=== PATIENT | male | born 1965 | race Caucasian/White ===

== ENCOUNTER 2023-07-03 09:27 | Outpatient (REF) | payer OTHER, SELFPAY ==
--- NOTE | ~2023-07-03 | XR_ITS ---
STUDY: Chest and SI series INDICATION: Iritis, rule out ankylosing spondylitis, sarcoidosis. COMPARISON: None TECHNIQUE: PA and lateral chest, 5 view SI series FINDINGS: Chest: Heart, mediastinum, pulmonary vessels and lung teran within normal limits. Bony structures are intact. SI series: SI joints are symmetric and unremarkable in appearance. Hip joints are maintained. No acute bony pathology recognized. Unremarkable chest and SI series
[2023-07-03 11:33] LABS: Hematocrit 48.3 % (42.0-52.0); Hemoglobin 15.2 g/dl (14.0-18.0); Mean Corpuscular HGB Conc 31.5 g/dl (31.0-36.0); Mean Corpuscular Hemoglobin 25.8 pg (27.0-33.0); Mean Corpuscular Volume 81.9 fL (80.0-98.0); Mean Platelet Volume 10.2 fL (9.4-12.4); Platelet Count 254 X10*3/uL (160-400); Red Cell Distribution Width 13.2 % (11.0-16.0)
[2023-07-03 11:54] LABS: Rheumatoid Factor < 13.0 IU/mL (<15.0)
[2023-07-03 12:31] LABS: Erythrocyte Sedimentation Rate 1 MM/HR (0-15)
[2023-07-06 12:18] LABS: RPR Rapid Plasma Reagin NON-REACTIVE (NON-REACTIVE)
[2023-07-06 17:28] LABS: Lyme Abs Screen <0.90 index
[2023-07-07 06:43] LABS: HLA B27 Negative (Negative)
[2023-07-08 14:14] LABS: Angiotensin Converting Enzyme <5 U/L (9-67)
== END 2023-07-03 09:28 | disposition home or self-care (01) ==
LOC: HO.HHCL 09:27
PROVIDERS: Visit Provider Optometrist
DX: H20.00 Unspecified acute and subacute iridocyclitis (principal)
CPT/HCPCS: 36415; 71046; 72202; 82164; 85027; 85652; 86431; 86592; 86617; 86618; 86812

== ENCOUNTER 2023-11-04 09:17 | Outpatient (REF) | payer OTHER, SELFPAY ==
[2023-11-04 11:58] LABS: Prostate Specific Antigen 0.77 ng/mL (<0.05-4.0)
== END 2023-11-04 09:18 | disposition home or self-care (01) ==
LOC: HO.HHCL 09:17
PROVIDERS: Visit Provider Nurse Practitioner Family
DX: N40.1 Benign prostatic hyperplasia with lower urinary tract symptoms (principal)
CPT/HCPCS: 36415; 84153

== ENCOUNTER 2024-12-26 08:53 | Outpatient (REF) | payer OTHER, SELFPAY ==
--- NOTE | ~2024-12-26 | XR_ITS ---
EXAMINATION: XR SHOULDER, LEFT CLINICAL INFORMATION: M25.519 - Pain in unspecified shoulder COMPARISON: None available. TECHNIQUE: AP external rotation, Grashey, scapular Y, and axillary views of the left shoulder. FINDINGS: Normal bone mineralization. No fracture, dislocation, or suspicious bone lesion. Normal alignment. The glenohumeral joint is normal. The AC joint is normal. There is a mildly downsloping acromion. No undersurface spurring. The subacromial space is preserved. Remainder of the soft tissue and bony structures appear normal. XR/XR shoulder LT min 2V IMPRESSION: Normal left shoulder. Electronically signed by: Neri Mauricio MD 12/26/2024 01:36 PM EDT
--- OUTSIDE RECORDS SUMMARY | 2024-12-26 09:21 | XMS_ITS | Clinical Summary ---
Author Organization [facility], Address [address] [place] [address] Phone Care Team Providers Care Autopsy Assistant Name Role Phone Hair Mills MD Primary Care Provider [phone] Allergies No known active allergies Medications acetaminophen (TYLENOL) 500 MG tablet Take 500 mg by mouth every 6 (six) hours if needed for mild pain Active albuterol HFA (PROVENTIL HFA;VENTOLIN HFA) 108 (90 Base) MCG/ACT inhaler Inhale 2 puffs 3 (three) times a day Active amLODIPine (NORVASC) 5 MG tablet Take 5 mg by mouth 1 (one) time each day Active cetirizine (ZyrTEC) 10 MG tablet Take 10 mg by mouth 1 (one) time each day Active docusate sodium (COLACE) 100 MG capsule Take 100 mg by mouth in the morning and 100 mg in the evening. Active fluticasone (FLONASE) 50 MCG/ACT nasal spray Administer 1 spray into each nostril 1 (one) time each day Active gabapentin (NEURONTIN) 600 MG tablet Take 600 mg by mouth in the morning and 600 mg in the evening. Active hydroCHLOROthia zide 25 MG tablet Take 25 mg by mouth 1 (one) time each day Active lisinopril 40 MG tablet Take 40 mg by mouth 1 (one) time each day Active oxyCODONE-aceta minophen (PERCOCET) 5-325 MG per tablet Take 1 tablet by mouth every 6 (six) hours if needed for moderate pain Active pravastatin (PRAVACHOL) 80 MG tablet Take 80 mg by mouth 1 (one) time each day Active tamsulosin (FLOMAX) 0.4 MG 24 hr capsule Take 0.4 mg by mouth 1 (one) time each day Active ibuprofen (ADVIL,MOTRIN) 600 MG tablet TAKE 1 TABLET BY MOUTH 3 TIMES A DAY NEEDED FOR PAIN 2 Active omeprazole (PriLOSEC) [address] capsule Take 10 mg by mouth 1 (one) time each day Do not crush or chew. Active Active Problems Problem Noted Date Diagnosed Date Degeneration of intervertebral disc 2022 Social History Tobacco Use Types Packs/Day Years Used Date Smoking Tobacco: Never Tobacco Cessation:Counseling Given: Not Answered Alcohol Use Standard Drinks/Week Comments Yes 0 (1 standard drink = 0.6 oz pur e alcohol) Sex and Gender Information Value Date Recorded Sex Assigned at Not on file Legal Sex Male 11:37 AM EDT Gender Identity Not on file Sexual Orientation Not on file Last Filed Vital Signs Vital Sign Reading Time Taken Comments Blood Pressure 136/80 04/02/2022 10:08 AM EDT Pulse 80 04/02/2022 10:08 AM EDT Temperature 36.2 ??C (97.1 ??F) 04/02/2022 10:08 AM E DT Respiratory Rate - - Oxygen Saturation - - Inhaled Oxygen Concentration - - Weight 83.9 kg (185 lb) 04/02/2022 10:08 AM EDT Height 172.7 cm (5' 8 ) 04/02/2022 10:08 AM EDT Body Mass Index 28.13 04/02/2022 10:08 AM EDT Plan of Treatment Health Maintenance Due Date Last Done Comments Colorectal Cancer Screening: Annual FOBT 2012 Colorectal Cancer Screening: Colonoscopy 2012 Colorectal Cancer Screening: Sigmoidoscopy 2012 Pneumococcal Vaccine: 50+ Ye ars (1 of 1 - PCV) 2013 Influenza Vaccine (Season Ended) 2025 Hepatitis B Vaccine Aged Out No longe r eligible based on patient's age to complete this topic Insurance [employer] Care Teams Autopsy Assistant Relationship Specialty Start Date End Date Hair Mills MD PCP - General Internal Medicine 03/10/22
--- OUTSIDE RECORDS SUMMARY | 2024-12-26 09:21 | XMS_ITS | Clinical Summary ---
Author Organization [facility] Address [address] [place] [address] Care Team Providers Care On Site Services Specialist Name Role Phone Hair Mills MD Primary Care Provider [phone] Allergies No known active allergies Medications Medication Sig Dispensed Refills Start Date End Date Status celecoxib (CELEBREX) 100 MG capsule Take 100 mg by mouth. 0 05/04/2019 Active Diclofenac Sodium (VOLTAREN) 1 % GEL topical Apply 4gm to knee up to 4 x daily 0 04/08/2019 Active docusate sodium (COLACE) 100 MG capsule Take 100 mg by mouth 2 (two) times a day. 0 05/04/2019 Active DULoxetine (CYMBALTA) DR capsule 20 mg TAKE 1 CAP BY MOUTH 2 TIMES DAILY FOR 30 DAYS. 1 06/07/2019 Active gabapentin (NEURONTIN) 600 MG tablet Take 600 mg by mouth 2 (two) times a day. 5 07/27/2019 Active hydroCHLOROthiazide (HYDRODIURIL) tablet 25 mg Take 25 mg by mouth daily. 1 07/27/2019 Active lisinopril (PRINIVIL,ZESTRIL) tablet 20 mg Take 20 mg by mouth daily. 5 07/27/2019 Active nabumetone (RELAFEN) 750 MG tablet TAKE 1 TAB BY MOUTH 2 TIMES DAILY 0 05/05/2019 Active oxyCODONE-acetaminophe n (PERCOCET) 5-325 MG per tablet Take 1 tablet by mouth every 6 (six) hours as needed. for pain 0 08/03/2019 Active pravastatin (PRAVACHOL) tablet 20 mg Take 20 mg by mouth daily. 5 07/27/2019 Active pravastatin (PRAVACHOL) tablet 20 mg TAKE 1 TABLET BY MOUTH EVERY DAY 0 05/30/2019 Active sulindac (CLINORIL) 150 MG tablet TAKE 1 TABLET BY MOUTH TWICE A DAY FOR 2 WEEKS 0 06/16/2019 Active tamsulosin (FLOMAX) 0.4 MG CAPS TAKE 1 CAPSULE BY MOUTH DAILY. TAKE 30 MINS AFTER SAME MEAL EVERY DAY. 4 07/27/2019 Active Active Problems No known active problems Family History Medical History Relation Name Comments Cancer Brother Cancer Mother Relation Name Status Comments Brother Mother Social History Tobacco Use Types Packs/Day Years Used Date Smoking Tobacco: Never Smokeless Tobacco: Never Alcohol Use Standard Drinks/Week Comments Yes 3 (1 standard drink = 0.6 oz pur e alcohol) Sex and Gender Information Value Date Recorded Sex Assigned at Not on file Gender Identity Not on file Sexual Orientation Not on file Job Start Date Occupation Industry Not on file Not on file Not on file Last Filed Vital Signs Vital Sign Reading Time Taken Comments Blood Pressure - - Pulse - - Temperature - - Respiratory Rate - - Oxygen Saturation - - Inhaled Oxygen Concentration - - Weight 85.7 kg (189 lb) 08/08/2019 2:50 PM EST Height 160 cm (5' 3 ) 08/08/2019 2:50 PM EST Body Mass Index 33.48 08/08/2019 2:50 PM EST Plan of Treatment Health Maintenance Due Date Last Done Comments Hepatitis C Screening 1963 COVID-19 Vaccine (#1) 1963 Depression Screening 1975 BMI Counseling 1981 Preventative Health Evaluation 1981 Colon Cancer Screening (Colonoscopy) 2008 Shingrix-Zoster Vaccine (1 of 2) 2013 Influenza Vaccine (#1) 2024 09/29/2018 DTap / Tdap / Td (2 - Td or Tdap) 09/01/2028 019 RSV Adult > 60+ Yrs or Pregn ant (1 - 1-dose 75+ series) 2038 Pneumococcal Vaccine Aged Out 09/11/2020 No long er eligible based on patient's age to complete this topic Hepatitis B Vaccines Aged Out No long er eligible based on patient's age to complete this topic RSV Ped < 20 months Aged Out No longe r eligible based on patient's age to complete this topic Care Teams On Site Services Specialist Relationship Specialty Start Date End Date Hair Mills MD PCP - General Internal Medicine 07/23/18
--- OUTSIDE RECORDS SUMMARY | 2024-12-26 09:21 | XMS_ITS | Clinical Summary ---
Author Organization [employer] Address [address] [facility] [address] [place] [address] Care Team Providers Care First Officer And Flight Instructor Name Role Phone Unavailable Primary Care Provider Unavailabl e Allergies No known active allergies Medications prednisoLONE acetate (Pred-Forte) 1 % ophthalmic suspension Administer 1 drop into the right eye 4 times daily. Shake before using. 10 mL 3 Active atorvastatin (Lipitor) 20 MG tablet TAKE 1 TABLET BY MOUTH EVERY DAY FOR 90 DAYS 3 Active carvedilol (Coreg) 3.125 MG tablet Take 3.125 mg by mouth with breakfast and with evening meal. 3 Active cetirizine (ZyrTEC) 10 MG tablet Take 10 mg by mouth in the morning. 3 Active FLUoxetine (PROzac) 20 MG capsule Take 20 mg by mouth in the morning. 3 Active gabapentin (Neurontin) 300 MG capsule TAKE 3 CAPSULES BY MOUTH 2 TIMES DAILY. 3 Active hydroCHLOROthia zide (HYDRODiuril) 25 MG tablet Take 25 mg by mouth in the morning. 3 Active lisinopril 40 MG tablet Take 40 mg by mouth in the morning. 3 Active oxybutynin XL (Ditropan-XL) 10 MG 24 hr tablet Take 10 mg by mouth in the morning. 3 Active oxyCODONE-aceta minophen (Percocet) 5-325 MG tablet 3 Active tamsulosin (Flomax) 0.4 MG 24 hr capsule TAKE 1 CAPSULE BY MOUTH DAILY. TAKE 30 MINS AFTER SAME MEAL EVERY DAY. 3 Active traZODone (Desyrel) 50 MG tablet TAKE 1-2 TABLETS BY MOUTH AT AT BEDTIME NEEDED SLEEP 3 Active Bisacodyl EC 5 MG EC tablet TAKE 2 TABLETS BY MOUTH RIGHT BEFORE YOUR FIRST DOSE OF LIQUID PREP. 4 Active amLODIPine (Norvasc) 5 MG tablet 4 Active pantoprazole (ProtoNix) 40 MG EC tablet TAKE 1 TAB BY MOUTH EVERY MORNING ON EMPTY STOMACH, WAIT 30MINS THEN EAT TO ACTIVATE THE MEDICATIONS 4 Active Banophen 25 MG capsule Take 25 mg by mouth every 6 (six) hours if needed for itching. 4 Active Latosha-Lanta 200-200-20 MG/5ML oral suspension 4 Active Active Problems No known active problems Social History Tobacco Use Types Packs/Day Years Used Date Smoking Tobacco: Never Smokeless Tobacco: Never Tobacco Cessation:Counseling Given: Not Answered Sex and Gender Information Value Date Recorded Sex Assigned at Male 06/23/2022 10:30 AM EDT Legal Sex Male 10:30 AM EDT Gender Identity Male 06/23/2022 10:30 AM EDT Sexual Orientation Straight 06/23/2022 10 :30 AM EDT Plan of Treatment Health Maintenance Due Date Last Done Comments CT Colonography 1963 Colonoscopy 1963 Colorectal Cancer Screening 1963 Depression Screening 1963 FIT DNA/Cologuard 1963 FIT 1963 FOBT 1963 HIV Screening 1963 Lipid Panel 1963 SDOH Screening 1963 Sigmoidoscopy 1963 Alcohol/Substance Use Screening 1975 Hepatitis C Screening 1981 Pneumococcal Vaccine: 50+ Years (2 of 2 - PCV) 09/11/2021 09/11/2020 COVID-19 Vaccine (2023- season) 2024 08/05/2023, 06/05/2021, 11/06/2020, Additional history exists Influenza Vaccine (#1) 2024 3, 07/29/2022, 06/06/2020, Additional history exists Tobacco Screening 12/23/2024 12/24/2023 DTaP/Tdap/Td Vaccines (2 - Td or Tdap) 09/01/2028 09/01/2018 RSV Patients and Patients Aged 60 years or older (1 - 1-dose 75+ series) 2038 Zoster Vaccines Completed 04/10/2022, 02/05/2022 HIB Vaccines Aged Out No longer eligi ble based on patient's age to complete this topic HPV Vaccines Aged Out No longer eligi ble based on patient's age to complete this topic Hepatitis A Vaccines Aged Out No long er eligible based on patient's age to complete this topic Hepatitis B Vaccines Aged Out No long er eligible based on patient's age to complete this topic IPV Vaccines Aged Out No longer eligi ble based on patient's age to complete this topic Meningococcal Vaccine Aged Out No annie rodrigo eligible based on patient's age to complete this topic RSV under 20 months Aged Out No longe r eligible based on patient's age to complete this topic Rotavirus Vaccines Aged Out No longer eligible based on patient's age to complete this topic Insurance [employer] < [address] [place] [id number]
--- OUTSIDE RECORDS SUMMARY | 2024-12-26 09:21 | XMS_ITS | Clinical Summary ---
Author Organization 175 [facility] Address [address] [place] [address] Phone Care Team Providers Care Rf Manager Name Role Phone Hair Mills MD Primary Care Provider [phone] Allergies No known active allergies Medications aluminum-magne sium hydroxide-mayra thicone (MAALOX) 200-200-20 mg/5 mL suspension Take 15 mL by mouth 4 times daily as needed (heartburn). 4 Active ezetimibe (ZETIA) 10 mg tablet Take 10 mg by mouth daily. Active amLODIPine (NORVASC) 10 mg tablet TAKE 1 TABLET BY MOUTH EVERY DAY 90 tablet 1 4 Active aspirin 81 mg EC tablet TAKE 1 TABLET BY MOUTH EVERY DAY 90 tablet 1 4 Active pantoprazole (PROTONIX) 40 mg EC tablet Take 1 tablet (40 mg total) by mouth 2 (two) times a day. Take on empty stomach, wait 30 mins and then eat to activate the medication- before breakfast and supper 60 each 4 Active sucralfate (CARAFATE) 100 mg/mL suspension Take 10 mL (1 g total) by mouth 4 (four) times a day (with meals and nightly). Take 1 hour before meals and at bedtime 1200 mL 4 08/08/20 25 Active tamsulosin (FLOMAX) 0.4 mg 24 hr capsule TAKE 1 CAPSULE BY MOUTH DAILY. TAKE 30 MINS AFTER SAME MEAL EVERY DAY. 90 capsule 1 5 Active lisinopril (PRINIVIL,ZEST RIL) 40 mg tablet TAKE 1 TABLET BY MOUTH EVERY DAY 90 tablet 1 5 Active diclofenac (VOLTAREN) 1 % topical gel APPLY 2 GRAM FOUR TIMES DAILY TO AFFECTED JOINT 100 g 1 5 Active fluticasone propionate (FLONASE) 50 mcg/actuation nasal spray Administer 2 sprays into each nostril 1 (one) time each day. Shake gently. Before first use, prime pump. After use, clean tip and replace cap. 16 g 5 5 Active cetirizine (ZyrTEC) 10 mg tablet Take 1 tablet (10 mg total) by mouth 1 (one) time each day. 90 tablet 1 5 Active oxyCODONE-acet aminophen (PERCOCET) 5-325 mg per tablet Take 1 tablet by mouth every 6 (six) hours if needed for severe pain. for pain Max Daily Amount: 4 tablets 112 tablet 5 Active gabapentin (NEURONTIN) 300 mg capsule Take 1 capsule (300 mg total) by mouth 2 (two) times a day. 180 each 2 5 Active acetaminophen (TYLENOL) 500 mg capsule Take 1 capsule (500 mg total) by mouth every 6 (six) hours if needed for mild pain. 30 capsule 2 5 Active meloxicam (MOBIC) 15 mg tablet Take 1 tablet (15 mg total) by mouth 1 (one) time each day. 90 tablet 2 5 Active hydroCHLOROthi azide (HYDRODIURIL) 25 mg tablet Take 1 tablet (25 mg total) by mouth 1 (one) time each day. 90 tablet 2 5 Active carvediloL (COREG) 3.125 mg tablet Take 1 tablet (3.125 mg total) by mouth 2 (two) times a day with meals. 180 tablet 2 5 Active atorvastatin (LIPITOR) 20 mg tablet Take 1 tablet (20 mg total) by mouth 1 (one) time each day. for 30 days 5 Active acetaminophen (TYLENOL) 500 mg capsule Take 1 Capsule by mouth as needed for Other (pain). 4 12/21/19 25 Discontinu ed(Reorder ) hydroCHLOROthi azide (HYDRODIURIL) 25 mg tablet Take 1 Tablet by mouth daily. 12/21/19 25 Discontinu ed(Reorder ) gabapentin (NEURONTIN) 300 mg capsule Take 3 Capsules by mouth 2 times daily. 4 12/21/19 Discontinu ed(Reorder ) carvediloL (COREG) 3.125 mg tablet Take 1 Tablet by mouth 2 times daily (with meals). 4 12/21/19 Discontinu ed(Reorder ) meloxicam (MOBIC) 15 mg tablet Take 1 tablet (15 mg total) by mouth 1 (one) time each day. 12/21/19 Discontinu ed(Reorder ) oxyCODONE-acet aminophen (PERCOCET) 5-325 mg per tablet Take 1 tablet by mouth every 6 (six) hours if needed for severe pain. for pain Max Daily Amount: 4 tablets 112 tablet 5 12/06/19 Discontinu ed(Reorder ) naproxen (EC NAPROSYN) 500 mg EC tablet Take 1 tablet (500 mg total) by mouth 2 (two) times daily after breakfast and dinner for 14 days. Do not crush, chew, or split. 28 tablet 5 11/29/19 Active Problems Problem Noted Date Diagnosed Date High cholesterol 06/13/2024 Hypertension 06/13/2024 Depression 06/13/2024 BPH (benign prostatic hyperplasia) 11/12/2023 ED (erectile dysfunction) 11/12/2023 Overweight (BMI 25.0-29.9) 11/09/2023 Prediabetes 03/11/2023 Cervical radiculopathy 02/27/2022 Overview (06/13/2024): Last Assessment & Plan: Mr. Meza underwent right shoulder surgery by Dr. Mbary and is doing much better. He has a couple visits left of PT. He does not have shoulder pain but does have right-sided neck pain radiates to his scapula and down his arm to the radial side of his hand. In the past, Dr. Arambula has told him that this was due to a pinched nerve in his neck. The last cervical spine MRI I have on hand is from 2017 and he believes that was his last one. This showed mild to moderate degenerative change with sclerotic STIR signal in C4 and C5. There was mild right C4, bilateral C5 and left worse than right C7 foraminal stenosis. There is no clear source of right radicular symptoms (likely C7) on that study and I would send him for new cervical spine MRI now. However, his lower back issues predominate and he would like to address that first. Aortic root dilation ([facility] V24) 11/14/2021 Chronic prostatitis 11/14/2021 Degenerative disc disease at L5-S1 level 022 Overview (06/13/2024): Last Assessment & Plan: This appointment was in conjunction with director of marketing and promotions is from [employer]- Tierra #[id number] and Mallory #[id number]. Mr. Meza continues to be plagued by daily back pain into his legs left worse than right but states that it has gotten much worse which prompted a new study. His new lumbar spine MRI at [facility] from 02/07/2022 is stable compared to the previous one showing degenerative disc changes at L5-S1 with significant loss of height and the left greater than right foraminal stenosis. The other disc levels are fairly healthy. On exam, seated SLR is positive bilaterally at 75 degrees, strength is 5/5, sensation to light touch intact, gait is mildly antalgic walking with a cane. We spent an extensive amount of time discussing an L5-S1 fusion particularly the approach for an ALIF using the spine model. We discussed the details, risks including but not limited to lower extremity weakness, urinary issues, retrograde ejaculation and pseudoarthrosis, benefits and anticipated postoperative course. We also discussed him meeting Dr. Gore the approach surgeon prior to the procedure and his intention to file for Social Security/disability as he is unable to work and is not getting any financial support. At this point he would like to proceed with an L5-S1 ALIF. I am going to send him for flexion-extension x-rays and set up his other appointments. Ascending aortic aneurysm ([facility] V24) 11/06/20 20 Osteoarthritis of knee 08/12/2019 Ulnar neuropathy 09/06/2015 Cervical spondylosis 09/06/2015 GERD (gastroesophageal reflux disease) 6 Encounters Date Type Department Care Team Description 12/20/2024 2:30 PM EDT Office Visit Adult Medicine [address] [phone] Hair Mills MD Primary hypertension (Primary Dx); High cholesterol; Encounter for long-term (current) use of medications; Cervical radiculopathy; Cervical spondylosis; Prediabetes; Right ankle pain, unspecified chronicity; Tear of lateral meniscus of left knee, unspecified tear type, unspecified whether old or current tear, subsequent encounter 11/21/2024 10:00 AM EDT Consult Orthopedic Surgery [facility] [address] [phone] Chilo Mabry MD Complex tear of medial meniscus of left knee, unspecified whether old or current tear, initial encounter (Primary Dx) 11/14/2024 4:00 PM EDT Office Visit Orthopedic Surgery [facility] [address] [phone] Kalie Chicas MD Old tear of meniscus of left knee, unspecified meniscus, unspecified tear type (Primary Dx); Right foot pain from Last 3 Months Immunizations Name Administration Dates Next Due Influenza Quadravalent, MDCK , 0.5ml, preservative free (Flucelvax) 6mo and older 06/08/2023,07/29/2022,06/06/2020,09/29 Influenza trivalent, 0.5mL, preservative free (Fluarix; FluLaval; Fluzone) ages 6mo and older (Afluria) 3 years and older 10/05/2019,06/18/2017 Pfizer SARS-CoV-2 COVID-19, mRNA, LNP-S, preservative free 11/06/2020,10/13/2020 Pneumococcal polysaccharide 23 valent (Pneumovax 23) 2yo and older 09/11/2020 Tdap Tetanus diptheria acell ular pertussis (Boostrix; Adacel) 7yo and older 09/01/2018 Zoster recombinant (Shingrix ) 19yo and older 04/10/2022,02/05/2022 Surgical History Surgery Date Site/Laterality Comments COLONOSCOPY 12/07/2015 PROCEDURE: HISTORICAL COLONOSCOPY; COMMENT: 8 mm transverse colon polyp: tubular adenoma. ROTATOR CUFF REPAIR PROCEDURE: HISTORICAL ROTATOR CUFF REPAIR; COMMENT: December 2021 ROTATOR CUFF REPAIR 01/14/2024 Left PROCEDURE: HISTORICAL ROTATOR CUFF REPAIR; COMMENT: Left shoulder arthroscopic rotator cuff repair and augmentation. Subacromial decompression. Distal clavicle resection. Labral debridement. Medical History Medical History Date Comments High cholesterol DX:High cholest anuja Hypertension DX:Hypertension Depression DX:Depression Ulnar neuropathy 09/06/2015 DX:Ulnar neurop athy Cervical spondylosis 09/06/2015 DX:Cervical spondylosis GERD (gastroesophageal reflux disease) DX:GERD (gastroesophageal reflux disease) Asthma DX:Asthma Epigastric pain DX:Epigastric pa in Postprandial epigastric pain DX: Postprandial epigastric pain Shoulder pain DX:Shoulder pain Family History Medical History Relation Name Comments Colon cancer Brother 1 Colon cancer Brother 2 Leukemia Mother Breast cancer Sister Relation Name Status Comments Brother 1 Brother 2 Alive Mother Sister Social History Tobacco Use Types Packs/Day Years Used Date Smoking Tobacco: Never Smokeless Tobacco: Never Tobacco Cessation:Counseling Given: Not Answered Alcohol Use Standard Drinks/Week Comments Yes 2 (1 standard drink = 0.6 oz pur e alcohol) Sex and Gender Information Value Date Recorded Sex Assigned at Not on file Legal Sex Male 6:14 PM EST Gender Identity Not on file Sexual Orientation Not on file Obstetrics History Last Filed Vital Signs Vital Sign Reading Time Taken Comments Blood Pressure 138/68 12/20/2024 2:12 PM EDT Pulse 68 12/20/2024 2:12 PM EDT Temperature 36.7 ??C (98.1 ??F) 12/20/2024 2:12 PM ED T Respiratory Rate 17 12/20/2024 2:12 PM EDT Oxygen Saturation 97% 12/20/2024 2:12 PM EDT Inhaled Oxygen Concentration - - Weight 84.8 kg (187 lb) 12/20/2024 2:12 PM EDT Height 172.7 cm (5' 7.99 ) 12/20/2024 2:12 PM ED T Body Mass Index 28.44 12/20/2024 2:12 PM EDT Plan of Treatment Upcoming Encounters Date Type Department Care Team (Late st Contact Info) Description 01/09/2025 1:00 PM EDT Consult Orthopedic Surgery - [facility] [address] [facility] [address] [place] [phone] Micheal Crook, DPM [address] [address] 03/21/2025 1:00 PM EDT Office Visit Adult Medicine [address] [phone] Tenzin Kaufman PA [address] [place] [phone] Health Maintenance Due Date Last Done Comments Pneumococcal Vaccine: 50+ Years (2 of 2 - PCV) 09/11/2021 09/11/2020 Pneumococcal Vaccine: Pediatrics (0 to 5 Years) and At-Risk Patients (6 to 64 Years) (2 of 2 - PCV) 09/11/2021 09/11/2020 Depression Screening 08/02/2022 HIV Screening 08/02/2022 Medicare Annual Wellness Visit 08/02/2022 Social Influencers of Health Screening 08/02/2022 RSV Immunization Adult Patients (1 - Risk 60-74 years 1-dose series) 2023 COVID-19 Vaccine ( season) 2024 08/05/2023, 06/05/2021, 11/06/2020, Additional history exists Hypertension/CHF/CAD Annual BMP Blood Test 12/20/2025 12/20/2024, 09/13/2024, 06/13/2024, Additional history exists DTaP,Tdap,and Td Vaccines (2 - Td or Tdap) 09/01/2028 09/01/2018 Colorectal Cancer Screening: Colonoscopy 11/16/2028 11/17/2023 Cholesterol Screening (Lipid Panel) 12/20/2029 12/20/2024, 09/13/2024, 03/12/2023 Hepatitis C Screening Completed 04/03/2017 Zoster Vaccines Completed 04/10/2022, 02/05/2022 Influenza Vaccine Completed 06/13/2024, , 07/29/2022, Additional history exists HIB Vaccines Aged Out No longer eligi [...] on patient's age to complete this topic MMR Vaccines Aged Out No longer eligi ble based on patient's age to complete this topic Meningococcal ACWY Vaccine Aged Out N o longer eligible based on patient's age to complete this topic Meningococcal B Vaccine Aged Out No l onger eligible based on patient's age to complete this topic RSV Immunization Patients Under 20 months Aged Out No longer eligible based on patient's age to complete this topic Varicella Vaccines Aged Out No longer eligible based on patient's age to complete this topic Goals Goal Patient Goal Type Associated Problems Recent Progress Patient-Stated? Author STG - 6 visits General No Amirah Dash, PT Note: Patient is able to achieve 145 degrees of passive L shoulder flexion Patient is able to achieve 145 degrees of passive L shoulder ABD Patient is able to achieve 75 degrees of passive L shoulder ER LTG - 12 visits General No Amirah Dash, PT Note: Patient is able to achieve 140 degrees of active L shoulder flexion Patient is able to achieve 140 degrees of active L shoulder abd Patient is able to achieve 90 degrees of passive L shoulder abd Patient is able to achieve 4+/5 shoulder flexion strength bilaterally Patient is able to achieve 4+/5 shoulder abduction strength bilaterally Patient is independent and compliant with HEP Procedures Procedure Name Priority Date/Time Associated Diagnosis Comments LIPID PANEL WITH REFLEX TO DIRECT LDL Routine 12/20/2024 3:16 PM EDT High cholesterol COMPREHENSIVE METABOLIC PANEL Routine 12/20/2024 3:16 PM EDT Encounter for long-term (current) use of medications XR FOOT 3+ VIEWS RIGHT Routine 4:13 PM EDT Right foot pain COLONOSCOPY Routine 11/17/2023 HEPATITIS C SCREENING Routine 04/03/2017 from Last 3 Months or Most Recently Relevant to Health Maintenance Results * (ABNORMAL) Lipid panel with reflex to direct LDL (12/20/2024 3:16 PM EDT) Cholesterol 199 0 - 200 mg/dL LAB CHEMISTRY METHOD 12/20/2024 7:16 PM EDT [facility] Triglycerides 191(H) 0 - 150 mg/dL LAB CHEMISTRY METHOD 12/20/2024 7:16 PM EDT [facility] HDL 46 >=40 mg/dL LAB CHEMISTRY METHOD 12/20/2024 7:16 PM EDT [facility] LDL Calculated 115(H) 0 - 100 mg/dL LAB CHEMISTRY METHOD 12/20/2024 7:16 PM EDT [facility] VLDL Cholesterol Martin 38.2 mg/dL LAB CHEMISTRY METHOD 12/20/2024 7:16 PM EDT [facility] Non HDL Chol. (LDL+VLDL) 153(H) <145 mg/dL LAB CHEMISTRY METHOD 12/20/2024 7:16 PM EDT [facility] Chol/HDL Ratio 4.3 0.0 - 4.4 LAB CHEMISTRY METHOD 12/20/2024 7:16 PM EDT [facility] Blood Venous blood specimen / Unknown Venipuncture / Unknown 12/20/2024 3:16 PM EDT 12/20/2024 3:16 PM EDT us Hair Mills MD LAB BLOOD ORDERABLES Final Resu lt [facility] [address] [place] [address], * Comprehensive metabolic panel (12/20/2024 3:16 PM EDT) [facility] Signature Sodium 140 133 - 145 mmol/L LAB CHEMISTRY METHOD 12/20/2024 7:[address] [facility] Potassium 3.9 3.5 - 5.5 mmol/L LAB CHEMISTRY METHOD 12/20/2024 7:[address] [facility] Chloride 105 96 - 110 mmol/L LAB CHEMISTRY METHOD 12/20/2024 7:[address] [facility] CO2 30 21 - 32 mmol/L LAB CHEMISTRY METHOD 12/20/2024 7:[address] [facility] Anion Gap 5 3 - 11 LAB CHEMISTRY METHOD 12/20/2024 7:[address] [facility] Glucose 96 70 - 100 mg/dL LAB CHEMISTRY METHOD 12/20/2024 7:[address] [facility] BUN 14 5 - 25 mg/dL LAB CHEMISTRY METHOD 12/20/2024 7:[address] [facility] Creatinine 0.88 0.70 - 1.30 mg/dL LAB CHEMISTRY METHOD 12/20/2024 7:[address] [facility] eGFR 98 >=60 mL/min/1. 73m2 LAB CHEMISTRY METHOD 12/20/2024 7:[address] [facility] Comment:Calculation based on the??Chronic Kidney Disease Epidemiology Collaboration (CKD-EPI) equation refit??without adjustment for race. BUN/Creatinine Ratio 15.9 LAB CHEMISTRY METHOD 12/20/2024 7:[address] [facility] Calcium 9.4 8.5 - 10.5 mg/dL LAB CHEMISTRY METHOD 12/20/2024 7:[address] [facility] AST (SGOT) 16 10 - 42 unit/L LAB CHEMISTRY METHOD 12/20/2024 7:[address] [facility] ALT (SGPT) 29 10 - 60 unit/L LAB CHEMISTRY METHOD 12/20/2024 7:15 PM EDT [facility] Alkaline Phosphatase 80 42 - 121 unit/L LAB CHEMISTRY METHOD 12/20/2024 7:15 PM EDT [facility] Total Protein 7.1 6.0 - 8.0 g/dL LAB CHEMISTRY METHOD 12/20/2024 7:15 PM EDT [facility] Albumin 4.2 3.2 - 5.0 g/dL LAB CHEMISTRY METHOD 12/20/2024 7:15 PM EDT [facility] Total Bilirubin 0.7 0.0 - 1.4 mg/dL LAB CHEMISTRY METHOD 12/20/2024 7:15 PM EDT [facility] Blood Venous blood specimen / Unknown Venipuncture / Unknown 12/20/2024 3:16 PM EDT 12/20/2024 3:16 PM EDT us Hair Mills MD LAB BLOOD ORDERABLES Final Resu lt [facility] [address] [place] [address], * XR Foot 3+ Views Right (11/14/2024 4:13 PM EDT) Anatomical Region Laterality Modality Lower Extremities, Foot Right Computed Radiography 11/14/2024 4:21 PM EDT Narrative 11/14/2024 4:21 PM EDT Right foot, 3 views. History pain at the base of the fifth metatarsal bone. There is no evidence of fractures, dislocations or destructive lesions. Alignment is maintained. CONCLUSIONS: No evidence of fractures or dislocations. -------- FINAL REPORT -------- Dictated By: Zohreh Schmidt Dictated Date: 11/14/2024 16:21 ET Assigned Physician: Zohreh Schmidt Reviewed and Electronically Signed By: Zohreh Schmidt Signed Date: 11/14/2024 16:21 ET Workstation ID: [id number] Transcribed By: Self Edit Transcribed Date: 11/14/2024 16:21 ET Procedure Note Zohreh Schmidt MD - 11/14/2024 Right foot, 3 views. History pain at the base of the fifth metatarsal bone. There is no evidence of fractures, dislocations or destructive lesions.Alignment is maintained. CONCLUSIONS: No evidence of fractures or dislocations. -------- FINAL REPORT -------- Dictated By: Zohreh Schmidt Dictated Date: 11/14/2024 16:21 ET Assigned Physician: Zohreh Schmidt Reviewed and Electronically Signed By: Zohreh Schmidt Signed Date: 11/14/2024 16:21 ET Workstation ID: [id number] Transcribed By: Self Edit Transcribed Date: 11/14/2024 16:21 ET Kalie Chicas MD IMG XR PROCEDURES Final Result * Colonoscopy (11/17/2023) Pathologist [facility] Colonoscopy no interpretation , abstracted Anatomical Region Laterality Modality Other Historical Provider HEALTH MAINTENANCE Final Result * Hepatitis C Screening (04/03/2017) [facility] Hepatitis C Screening abstracted Historical Provider HEALTH MAINTENANCE Final Result from Last 3 Months or Most Recently Relevant to Health Maintenance Insurance [facility] MEDIC[facility] Member Subscriber Plan / Payer (Ef fective 2024-Present) Name:Negro Garza Relation to Subscriber:Self Name:Negro Garza Payer ID:[id number] Group ID:[id number] Type:Not on file Address: [place] [address] [address] [id number] Care Teams Rf Manager Relationship Specialty Start Date End Date Hair Mills MD [address] [place] [id number] PCP - General Internal Medicine 06/23/24
== END 2024-12-26 08:54 | disposition home or self-care (01) ==
LOC: HO.HOSX 08:53
PROVIDERS: Visit Provider Orthopaedic Surgery
DX: M25.512 Pain in left shoulder (principal); M50.90 Cervical disc disorder, unspecified, unspecified cervical region; Z98.890 Other specified postprocedural states
CPT/HCPCS: 73030; 99202

== ENCOUNTER 2024-12-26 08:55 | Outpatient (AMB) | payer OTHER, SELFPAY ==
--- NOTE | 2024-12-26 09:07 | A.OFFVIS_ITS ---
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 Patient has completed two courses of physical therapy and is having continued pain. Hx of RTC Repair of unknown shoulder ~ December 2021 Hx of Left RTC Repair and augmentation. Subacromial decompression. Distal clavicle resection. Labral debridement 01/14/24. 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 He had a left shoulder surgery with a rotator cuff repair 1 year ago. He states he has never felt pain-free here. He has pain with motion in the shoulder. He also feels like he has weakness and numbness and tingling in the left hand. He states he has a history of cervical radiculopathy for which he was supposed to get surgery. He has done physical therapy several times for his left shoulder and after this most recent time he has sought a 2nd opinion as he feels like he is not improving. Physical Exam Extrem Other: On exam he was 5/5 rotator cuff strength but pain with testing. He has a positive Daley and Neer. External rotation to 35 degrees. He has 5/5 muscle strength in deltoid/biceps/triceps/wrist extension/wrist flexion/finger ad/abduction. Results Reviewed Results Reviewed: I personally reviewed relevant radiographs. Normal shoulder radiographs Assessment & Plan Assessment & Plan (1) History of rotator cuff surgery: Code(s): Z98.890 - Other specified postprocedural states Category: Surgical Plan: This is a 59-year-old gentleman with a history of a rotator cuff repair on the left. I reviewed his intraoperative images which show placement of an anchor and placement of a Regeneten patch. I do not have the op report and so it is difficult to know if there was a full-thickness tear or not but I suspect based on the pictures alone that this was a partial-thickness tear. His symptoms are not suggestive of acute rotator cuff injury. He has a sharply positive Daley and a lot of shoulder pain. His cervical disc disease con films this is he also describes and numbness in her weakness. He has tried physical therapy for his shoulder and he has had pain since the surgery over a year ago. I recommend MRI. (2) Cervical disc disease: Code(s): M50.90 - Cervical disc disorder, unspecified, unspecified cervical region Category: Medical Plan: Negro describes a history of cervical disc disease. He states he was supposed to have surgery on this and has not had an MRI in over 3 years. His symptoms are suggestive of disc disease . 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 In order to clarify what is going on with him I would recommend an MRI of his cervical spine. Orders: Orders MR shoulder LT wo con Today Z98.890 - Other specified postprocedural states XR shoulder LT min 2V Today M25.519 - Pain in unspecified shoulder MR cervical spine wo con Today M50.90 - Cervical disc disorder, unspecified, unspecified cervical region, M54.12 - Radiculopathy, cervical region Coding Level of Care Code New Pt Level 4 (67881) Diagnoses History of rotator cuff surgery Z98.890 Cervical disc disease M50.90
== END 2024-12-26 09:35 | disposition home or self-care (01) ==
LOC: HO.HOS 08:55
PROVIDERS: PCP Internal Medicine; Visit Provider Orthopaedic Surgery
DX: M25.512 Pain in left shoulder (principal); Z98.890 Other specified postprocedural states; M50.90 Cervical disc disorder, unspecified, unspecified cervical region
CPT/HCPCS: 99204

== ENCOUNTER → 2024-12-26 09:00 | Outpatient (BNV) | payer OTHER, SELFPAY | PROVIDERS: Visit Provider Radiology Diagnostic Radiology | DX: M25.512 Pain in left shoulder (principal) | CPT/HCPCS: 73030 ==

== ENCOUNTER → 2025-01-30 12:23 | Outpatient (BNV) | payer OTHER, SELFPAY | PROVIDERS: PCP Internal Medicine; Visit Provider Radiology Diagnostic Radiology | DX: M48.02 Spinal stenosis, cervical region (principal); M75.122 Complete rotator cuff tear or rupture of left shoulder, not specified as traumatic | CPT/HCPCS: 72141; 73221 ==

== ENCOUNTER 2025-01-30 12:27 | Outpatient (REF) | payer OTHER, SELFPAY ==
--- NOTE | ~2025-01-30 | MR_ITS ---
EXAMINATION: MR SHOULDER WITHOUT CONTRAST, LEFT CLINICAL INFORMATION: Rotator cuff tear, rotator cuff repair December 2023 without improvement despite physical therapy, limited range of motion COMPARISON: X-ray Dec 26 2024 TECHNIQUE: MRI multiplanar multisequence technique upper extremity joint of the shoulder without contrast was performed on a high-field scanner. FINDINGS: Rotator Cuff: Oblique high signal traverses rotator cuff near the footprint on fluid sensitive sequence consistent with a tear, likely full-thickness without retraction. There is intrasubstance delamination extending 1 cm into the tendon. Tear extends into anterior margin of infraspinatus in the region where the fibers from the 2 tendons lenticular. Rotator cuff is otherwise unremarkable. Labrum: Labrum appears intact. Long biceps tendon: The long biceps tendon is intact and not displaced from the groove. Acromioclavicular joint: There is mild irregularity of the AC joint consistent with degenerative change. There is fluid in the AC joint. Acromial morphology is curved, type II. There is physiologic volume of fluid in the subacromial subdeltoid bursa. Axillary pouch: The axillary pouch is intact. Articular cartilage: There is a focal deep partial versus full-thickness fissure articular cartilage defect in the central humeral head with adjacent degenerative marrow signal change. Bones/Marrow: Anchors present in the greater tuberosity related to prior rotator cuff repair. Soft tissues: There is no muscle edema, fatty streaking, or atrophy. MR/MR shoulder LT wo con IMPRESSION: Changes from prior rotator cuff repair. Full-thickness nonretracted tear of supraspinatus tendon obliquely courses through rotator cuff near the site of surgical repair. There is also intrasubstance delamination extending 1 cm medially from the tear extending into the tendon. Tear minimally extends into anterior fibers of infraspinatus tendon in the region where the supraspinatus and infraspinatus tendons blend together. There is a focal deep partial or full-thickness articular cartilage defect in central humeral head. Mild AC joint arthropathy Electronically signed by: Moshe Negrete MD 01/30/2025 01:59 PM EDT
--- NOTE | ~2025-01-30 | MR_ITS ---
EXAMINATION: MR CERVICAL SPINE WITHOUT CONTRAST CLINICAL INFORMATION: Cervical spine disorder TECHNIQUE: Multiplanar multisequence imaging through the cervical spine was performed from the base of the skull through at least T1. PRIOR: None FINDINGS: Skull Base: There is no tonsillar ectopia. Cord: There is no abnormal cord signal or hydrosyringomyelia. Marrow and end-plates: There are no marrow replacing lesions. Modic 1 signal changes present along inferior C5. 8 mm degenerative cystic change is present in the posterior C5 vertebral body. Alignment: There is straightening to mild reversal of cervical lordosis. Soft tissues: Paraspinal soft tissues and major vascular structures are unremarkable. Flow voids preserved carotid and vertebral arteries. C2-3: Mild broad-based disc bulge there is no spinal stenosis. Right neural foramen is mildly narrow. The left is not. C3-4: Broad-based disc bulge flattens the ventral cord and results in moderate spinal stenosis. There is a left subarticular zone and foraminal protrusion. Disc and osteophytes result in moderate bilateral foraminal narrowing. C4-5: There is mild to moderate loss of disc height and broad-based disc bulge and endplate osteophytes results in mild flattening of the ventral cord with moderate spinal stenosis. Facet and endplate osteophytes result in severe right and moderate left foraminal narrowing. C5-6: There is mild loss disc height and circumferential broad-based disc bulge with endplate osteophytes moderately narrowing the spinal canal. There is also facet osteophytes, left greater than right. There is severe bilateral foraminal narrowing, greater on the right. C6-7: There is moderate loss of disc height and endplate osteophytes resulting in mild spinal stenosis with moderate right and mild to moderate left foraminal narrowing C7-T1: There is subtle grade 1 anterolisthesis. There is no spinal stenosis. Facet osteophytes result in moderate right and dyoz-ej-leieikon left foraminal narrowing. MR/MR cervical spine wo con IMPRESSION: There is straightening of the expected cervical lordosis. This can be idiopathic, but can also be related to degenerative change, or muscle spasm. Multilevel degenerative disc disease and facet arthropathy. C3-4: There is moderate spinal stenosis and moderate bilateral foraminal narrowing. C4-5: There is mild flattening of the ventral cord with moderate spinal stenosis and severe right and moderate left foraminal narrowing. C5-6: There is moderate spinal stenosis and severe bilateral foraminal narrowing, greater on the right. C6-7: There is mild spinal stenosis with moderate right and mild to moderate left foraminal narrowing C7-T1: There is moderate right and xnal-bi-gcvphlyw left foraminal narrowing. Electronically signed by: Moshe Negrete MD 01/30/2025 02:25 PM EDT
--- OUTSIDE RECORDS SUMMARY | 2025-01-30 14:06 | XMS_ITS | Clinical Summary ---
Author Organization [facility], Address [address] [place] [address] Phone Care Team Providers Care Smearer Name Role Phone Hair Mills MD Primary Care Provider [phone] Allergies No known active allergies Medications acetaminophen [...] complete this topic Insurance [employer] Care Teams Smearer Relationship Specialty Start Date End Date Hair Mills MD PCP - General Internal Medicine 03/10/22
== END 2025-01-30 12:28 | disposition home or self-care (01) ==
LOC: HO.MRI 12:27
PROVIDERS: PCP Internal Medicine; Visit Provider Orthopaedic Surgery
DX: M50.90 Cervical disc disorder, unspecified, unspecified cervical region (principal); M54.12 Radiculopathy, cervical region; Z98.890 Other specified postprocedural states
CPT/HCPCS: 72141; 73221

== ENCOUNTER 2025-04-06 10:20 | Outpatient (AMB) | payer OTHER, SELFPAY ==
--- NOTE | 2025-04-06 10:32 | MHC.OFFVIS ---
Intake Visit Reasons: OV-LT shoulder RTC- MRI review Intake Note: Negro is a 59 year old right hand dominant male who presents today for an MRI review of his right shoulder. Currently he complains of Left sided pain that radiates from the neck to the shoulder and has numbness from the shoulder and radiates to the finger tips. He reports history of an EMG that was positive but nothing was ever done. He takes percocet for his pain but it is not helping. Hx of RTC Repair of unknown shoulder ~ December 2021 Hx of Left RTC Repair and augmentation. Subacromial decompression. Distal clavicle resection. Labral debridement 01/14/24. Allergies No Known Allergies (No Known Allergies*) Allergy (Unverified 05/10/20 18:55) HPI HPI OV-LT shoulder RTC- MRI review: Details: Negro is a 59 year old right hand dominant male who presents today for an MRI review of his right shoulder. Hx of RTC Repair of unknown shoulder ~ December 2021 Hx of Left RTC Repair and augmentation. Subacromial decompression. Distal clavicle resection. Labral debridement 01/14/24. He is seeing me for a 2nd opinion for his right shoulder. He also has left knee pain. He also has numbness and tingling his arms. He describes numbness extending down to his fingertips on the left. He also adamantly refuses to have spine surgery and does not want additional shoulder surgery. Physical Exam Extrem Other: On exam he has 30 degrees of external rotation of his right shoulder. He has 4+5 empty can. Positive Daley and Neer. Negative lift-off. He has 4/5 strength in wrist extension bilateral biceps is also 4+/5 on the left Results Reviewed Results Reviewed: I personally reviewed the MR images. IMPRESSION Left Shoulder: Changes from prior rotator cuff repair. Full-thickness nonretracted tear of supraspinatus tendon obliquely courses through rotator cuff near the site of surgical repair. There is also intrasubstance delamination extending 1 cm medially from the tear extending into the tendon. Tear minimally extends into anterior fibers of infraspinatus tendon in the region where the supraspinatus and infraspinatus tendons blend together. There is a focal deep partial or full-thickness articular cartilage defect in central humeral head. Mild AC joint arthropathy IMPRESSION C Spine: There is straightening of the expected cervical lordosis. This can be idiopathic, but can also be related to degenerative change, or muscle spasm. Multilevel degenerative disc disease and facet arthropathy. C3-4: There is moderate spinal stenosis and moderate bilateral foraminal narrowing. C4-5: There is mild flattening of the ventral cord with moderate spinal stenosis and severe right and moderate left foraminal narrowing. C5-6: There is moderate spinal stenosis and severe bilateral foraminal narrowing, greater on the right. C6-7: There is mild spinal stenosis with moderate right and mild to moderate left foraminal narrowing C7-T1: There is moderate right and drvu-hk-pjjygtmz left foraminal narrowing. Assessment & Plan Assessment & Plan (1) History of rotator cuff surgery: Code(s): Z98.890 - Other specified postprocedural states Category: Surgical Plan: 60-year-old gentleman with mild weakness on clinical exam and MRI suggestive of acute on chronic tear. There is no retraction. I discussed this with him. He told me bluntly that he does not want surgery. I discussed this with him. It is not a retracted tear. His in the presence of prior rotator cuff repair but given the MRI it is still concerning. He understands this. His primary complaint however is attributable to his radiculopathy (2) Cervical radiculopathy: Code(s): M54.12 - Radiculopathy, cervical region Category: Medical Plan: He has severe bilateral foraminal stenosis at C5-6 as well as degenerative changes throughout the cervical spine. I asked that he see our spine surgeon. He states he has a spine surgeon. He also states he does not want spine surgery. I told him I really can not advise him on this matter other than to recommend that he seek the opinion of a spine doctor. In my opinion this is very important. I told him this. He understands. Coding Level of Care Code Est Pt Level 4 (23855) Diagnoses History of rotator cuff surgery Z98.890 Cervical radiculopathy M54.12
--- OUTSIDE RECORDS SUMMARY | 2025-04-06 11:27 | XMS_ITS | Encounter Summary ---
Author Organization [facility] Address [address] [place] [address] Encounters * CPT with Paco Kelly at [employer] on 2025-03-08 { reasonForRequest : rash , patientReports : Rash , denies :[ Jones Flash, circumferential jones , Jones reported with black tissue to the area , Open skin area after a fall with uncontrolled bleeding , Abscess/ infection with streaking noted, presence of fever or without , History of cellulitis, isolated redness noted , Fever and chills noted in setting of wound , Bites -bugs, spider , Abscess ], chiefComplaints : Wound Care , pmh : Hypertension, Hyperlipidemia , allergies : No Known Drug Allergies ,& quot;otherAllergies : , painAssessment : , visitOutcome&qu ot;: , additionalComments : 59 y.o male complains of Wound Care\ndeveloped rash underneath his right arm two days ago. applies hydrogen peroxide with no relief and rash has no spread to his rib area. it is red raised with fluid filled pimples. painful, red, and itchy. not opened at this time. \nPatient denies any fever or chills. \nPatient has had chicken pox\nPatient has not had the shingles vaccine. \npatient denies any kidney issues and states he is on aspirin \nI pr ovided information on the mobile health provider response time and advised the patient and/or caregiver to monitor reported signs and symptoms. I discussed the warning signs of when to seek emergencycare. } Dispatched to the call address for the male with a rash. Pt states the rash started two days ago onhis right inside forearm and is now on his chest and side. He denies it being painful but says it is itchy. He has only tried hydrogen peroxide on it but it had no effect. He has not had any contact with animals, insects or plants, he denies fevers, chest pain, n/v/d, diff breathing or other complaints at this time. Pt was found opening door, CAOx4, airway open and patent, breathing non labored, able to speak in full sentences, -JVD, -HEENT, skin PWD with good turgor, mucous membranes pink and moist, +CMSx4, -edema/swelling, lungs CTA, afebrile, abd soft non distended/tended. Pt with 3 patches of erythema-right forearm just proximal to wrist, right lateral side and right anterior lower chest/upper abd, non ra ised and without pustules. rash Pt was assessed. Pictures taken and uploaded to portal. [facility] consulted. Scripts called into preferred pharmacy. Pt advised to follow up with PCP. Red flags discussed. ALL times are approx. ORAL_MEDICATION, WOUND_CARE Written by Paco Kelly on 2025-03-08
--- OUTSIDE RECORDS SUMMARY | 2025-04-06 11:28 | XMS_ITS | Clinical Summary ---
Author Organization [employer] Address [address] [place] [address] Care Team Providers Care Carriage Operator Name Role Phone Unavailable Primary Care Provider [...] Panel 1963 SDOH Screening 1963 Sigmoidoscopy 1963 Disability Screening 1963 Alcohol/Substance Use Screening 1975 Hepatitis C Screening 1981 Pneumococcal Vaccine: 50+ Years (2 of 2 - PCV) 09/11/2021 09/11/2020 COVID-19 Vaccine (2023- season) 2024 08/05/2023, 06/05/2021, 11/06/2020, Additional history exists Tobacco Screening 12/23/2024 12/24/2023 Influenza Vaccine (#1) 2025 3, 07/29/2022, 06/06/2020, Additional history exists DTaP/Tdap/Td Vaccines (2 - Td or Tdap) [...] Insurance [employer] < 65 [place] [id number]
--- OUTSIDE RECORDS SUMMARY | 2025-04-06 11:28 | XMS_ITS | Clinical Summary ---
Author Organization 175 [facility] Address 175 [place] [address] Phone Care Team Providers Care Infrastructure Manager Name Role Phone Hair Mills MD Primary Care Provider [phone] Allergies No known active allergies Medications aluminum-magne sium hydroxide-mayra thicone (MAALOX) 200-200-20 mg/5 mL suspension Take 15 mL by mouth 4 times daily as needed (heartburn). 09/10/19 24 Active sucralfate (CARAFATE) 100 mg/mL suspension Take 10 mL (1 g total) by mouth 4 (four) times a day (with meals and nightly). Take 1 hour before meals and at bedtime 1200 mL 11 08/08/20 24 025 Active fluticasone propionate (FLONASE) 50 mcg/actuation nasal spray Administer 2 sprays into each nostril 1 (one) time each day. Shake gently. Before first use, prime pump. After use, clean tip and replace cap. 16 g 5 10/14/19 25 Active gabapentin (NEURONTIN) 300 mg capsule Take 1 capsule (300 mg total) by mouth 2 (two) times a day. 180 each 2 12/21/19 25 Active acetaminophen (TYLENOL) 500 mg capsule Take 1 capsule (500 mg total) by mouth every 6 (six) hours if needed for mild pain. 30 capsule 2 12/21/19 25 Active meloxicam (MOBIC) 15 mg tablet Take 1 tablet (15 mg total) by mouth 1 (one) time each day. 90 tablet 2 12/21/19 25 Active hydroCHLOROthi azide (HYDRODIURIL) 25 mg tablet Take 1 tablet (25 mg total) by mouth 1 (one) time each day. 90 tablet 2 12/21/19 25 Active carvediloL (COREG) 3.125 mg tablet Take 1 tablet (3.125 mg total) by mouth 2 (two) times a day with meals. 180 tablet 2 12/21/19 25 Active atorvastatin (LIPITOR) 20 mg tablet Take 1 tablet (20 mg total) by mouth 1 (one) time each day. for 30 days 09/28/19 25 Active aspirin 81 mg EC tablet TAKE 1 TABLET BY MOUTH EVERY DAY 90 tablet 1 01/10/20 25 Active amLODIPine (NORVASC) 10 mg tablet TAKE 1 TABLET BY MOUTH EVERY DAY 90 tablet 1 01/25/20 25 Active diclofenac (VOLTAREN) 1 % topical gel Apply 2 gram four times daily to affected joint 100 g 1 01/27/20 25 Active FLUoxetine (PROzac) 20 mg capsule Take 1 capsule (20 mg total) by mouth 1 (one) time each day. 12/28/19 25 Active traZODone (DESYREL) 50 mg tablet Take 1-2 tablets (50-100 mg total) by mouth at bedtime as needed for sleep. 11/22/19 25 Active lisinopril (PRINIVIL,ZEST RIL) 40 mg tablet TAKE 1 TABLET BY MOUTH EVERY DAY 90 tablet 1 03/30/20 25 Active tamsulosin (FLOMAX) 0.4 mg 24 hr capsule TAKE 1 CAPSULE BY MOUTH DAILY. TAKE 30 MINS AFTER SAME MEAL EVERY DAY. 90 capsule 1 03/30/20 25 Active oxyCODONE-acet aminophen (PERCOCET) 5-325 mg per tablet Take 1 tablet by mouth every 6 (six) hours if needed for severe pain. for pain Max Daily Amount: 4 tablets 112 tablet 04/04/20 25 Active cetirizine (ZyrTEC) 10 mg tablet TAKE 1 TABLET BY MOUTH 1 TIME EACH DAY. 90 tablet 1 04/05/20 25 Active ezetimibe (ZETIA) 10 mg tablet Take 10 mg by mouth daily. 025 Discontinued pantoprazole (PROTONIX) 40 mg EC tablet Take 1 tablet (40 mg total) by mouth 2 (two) times a day. Take on empty stomach, wait 30 mins and then eat to activate the medication- before breakfast and supper 60 each 11 08/08/20 025 Discontinued tamsulosin (FLOMAX) 0.4 mg 24 hr capsule TAKE 1 CAPSULE BY MOUTH DAILY. TAKE 30 MINS AFTER SAME MEAL EVERY DAY. 90 capsule 1 10/07/19 025 Discontinued lisinopril (PRINIVIL,ZEST RIL) 40 mg tablet TAKE 1 TABLET BY MOUTH EVERY DAY 90 tablet 1 10/07/19 25 025 Discontinued cetirizine (ZyrTEC) 10 mg tablet Take 1 tablet (10 mg total) by mouth 1 (one) time each day. 90 tablet 1 10/14/19 025 Discontinued oxyCODONE-acet aminophen (PERCOCET) 5-325 mg per tablet Take 1 tablet by mouth every 6 (six) hours if needed for severe pain. for pain Max Daily Amount: 4 tablets 112 tablet 03/03/20 025 Discontinued(Re order) carbamide peroxide (DEBROX) 6.5 % otic solution Administer 5-10 drops into the right ear 2 (two) times a day for 8 days. 15 mL 03/21/20 25 025 Discontinued carbamide peroxide (DEBROX) 6.5 % otic solution Administer 5-10 drops into each ear 2 (two) times a day for 8 days. 15 mL 03/21/20 025 Active Problems Problem Noted Date Diagnosed Date Complex tear of medial meniscus of left knee 09/2024 High cholesterol 06/13/2024 Hypertension 06/13/2024 Depression 06/13/2024 BPH (benign prostatic hyperplasia) 11/12/2023 ED (erectile dysfunction) 11/12/2023 Overweight (BMI 25.0-29.9) 11/09/2023 Prediabetes 03/11/2023 Cervical radiculopathy 02/27/2022 Overview (06/13/2024): Last Assessment & Plan: Mr. Meza underwent right shoulder surgery by Dr. Mabry and is doing much better. He has [...] to address that first. 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 Mr. Meza continues to be plagued by daily back pain into his legs left worse than right but states that it has gotten much worse which prompted a new study. His new lumbar spine MRI at [facility] from 02/07/2022 is stable compared to the [...] up his other appointments. Ascending aortic aneurysm ([facility] V24) 06/29/20 Osteoarthritis of knee 08/12/2019 Ulnar neuropathy 09/06/2015 Cervical spondylosis 09/06/2015 GERD (gastroesophageal reflux disease) 6 Encounters Date Type Department Care Team Description 03/24/2025 Telephone Adult Medicine [address] [phone] Roxy Marie MA Med Refill 03/23/2025 1:40 PM EDT Office Visit Gastroenterology [address] [phone] Ryanne Jackson NP Epigastric abdominal pain (Primary Dx); Family history of colon cancer in mother; History of adenomatous polyp of colon 03/23/2025 Telephone Gastroenterology [facility] [address] [phone] Ryanne Jackson NP 03/21/2025 1:00 PM EDT Office Visit Adult [address] [phone] Tenzin Kaufman PA Encounter for long-term (current) use of medications (Primary Dx); Cervical spondylosis; Prediabetes; Hypertension, unspecified type; High cholesterol; Gastroesophageal reflux disease, unspecified whether esophagitis present; Discomfort of right ear; Bilateral impacted cerumen 03/02/2025 Telephone Orthopedic Surgery [facility] [address] [phone] Elsy Ridley MA Surgery 02/15/2025 Telephone Orthopedic Surgery [facility] [address] [phone] Elsy Ridley MA surgery 01/25/2025 Telephone Orthopedic Surgery [facility] [address] [phone] Elsy Ridley MA Surgery 01/23/2025 10:00 AM EDT Consult Orthopedic Surgery [facility] 160 175 [facility] 160 [place] [phone] Chilo Mabry MD Complex tear of medial meniscus of left knee, unspecified whether old or current tear, initial encounter (Primary Dx) 01/23/2025 Telephone Orthopedic Surgery [facility] [address] [phone] Micheal Crook DPM 01/09/2025 1:00 PM EDT Consult Orthopedic Surgery [facility] 250 175 [facility] 250 [place] [phone] Micheal Crook, DPGabrielle Bursitis of both feet (Primary Dx) 01/09/2025 Telephone Orthopedic Surgery [facility] [address] [phone] Chilo Mabry MD from Last 3 Months Immunizations Name Administration Dates Next Due Influenza Quadravalent, MDCK , 0.5ml, preservative free (Flucelvax) 6mo and older 06/08/2023,07/29/2022,06/06/2020,09/29 Influenza trivalent, 0.5mL, preservative free (Fluarix; FluLaval; Fluzone) ages 6mo and older (Afluria) 3 years and older 10/05/2019,06/18/2017 [facility] SARS-CoV-2 COVID-19, mRNA, LNP-S, preservative free 11/06/2020,10/13/2020 [...] Sign Reading Time Taken Comments Blood Pressure 144/94 03/23/2025 1:54 PM EDT Pulse 69 03/23/2025 1:54 PM EDT Temperature 36.7 C (98.1 F) 03/21/2025 1:08 PM EDT Respiratory Rate 17 12/20/2024 2:12 PM EDT Oxygen Saturation 97% 03/23/2025 1:54 PM EDT Inhaled Oxygen Concentration - - Weight 83.9 kg (185 lb) 03/23/2025 1:54 PM EDT Height 172.7 cm (5' 8 ) 03/23/2025 1:54 PM EDT Body Mass Index 28.13 03/23/2025 1:54 PM EDT Plan of Treatment Upcoming Encounters Date Type Department Care Team (Late st Contact Info) Description 04/28/2025 4:00 PM EDT Appointment [facility] [address] [place] [phone] Sergei Salazar DO [address] [address] 05/03/2025 1:45 PM EDT Office Visit Orthopedic Surgery [facility] 250 175 [facility] 250 [place] [phone] Micheal Crook DPGabrielle [address] [address] 05/05/2025 10:00 AM EDT Consult Adult Medicine [facility] [address] [place] [address] Hair Mills MD [address] [place] [phone] 05/18/2025 9:30 AM EDT Hospital Encounter [facility] [address] [place] [phone] Chilo Mabry MD [address] [address] 05/18/2025 9:30 AM EDT - 05/18/2025 11:30 AM EDT Surgery [facility] [address] [place] [phone] Chilo Mabry MD [address] [address] ARTHROSCOPY KNEE [[id number] (CPT )] 05/31/2025 11:00 AM EDT Office Visit Orthopedic Surgery [facility] [address] [phone] Mel Swan PA [address] [address] Scheduled Procedures Name Priority Associated Diagnoses Date/Ti me ARTHROSCOPY KNEE Complex tear of medial meniscus of left knee, unspecified whether old or current tear, initial encounter 05/18/2025 9:30 AM EDT Health Maintenance Due Date Last Done Comments Pneumococcal Vaccine: 50+ Years (2 of 2 - PCV) 09/11/2021 09/11/2020 HIV Screening 08/02/2022 Medicare Annual Wellness Visit 08/02/2022 Social Influencers of Health Screening 08/02/2022 COVID-19 Vaccine ( season) 2024 08/05/2023, 06/05/2021, 11/06/2020, Additional history exists Depression Screening 08/24/2024 Influenza Vaccine (#1) 2025 , 06/08/2023, 07/29/2022, Additional history exists Hypertension/CHF/CAD Annual BMP Blood Test 12/20/2025 12/20/2024, 09/13/2024, 06/13/2024, Additional history exists DTaP,Tdap,and Td Vaccines (2 - Td or Tdap) 09/01/2028 09/01/2018 Colorectal Cancer Screening: Colonoscopy 11/16/2028 11/17/2023 Cholesterol Screening (Lipid Panel) 12/20/2029 12/20/2024, 09/13/2024, 03/12/2023 RSV Immunization Adult Patients (1 - 1-dose 75+ series) 2038 Hepatitis C Screening Completed 04/03/2017 Zoster Vaccines Completed 04/10/2022, 02/05/2022 HIB Vaccines [...] Procedure Name Priority Date/Time Associated Diagnosis Comments DRUG ABUSE SCREEN 8A PANEL, URINE Routine 03/24/2025 9:28 AM EDT Encounter for long-term (current) use of medications Cervical spondylosis Prediabetes HEMOGLOBIN A1C Routine 03/21/2025 1:56 PM EDT Prediabetes XR KNEE 3 VIEWS LEFT Routine 01/23/2025 10:01 AM EDT Complex tear of medial meniscus of left knee, unspecified whether old or current tear, initial encounter COMPREHENSIVE METABOLIC PANEL Routine 12/20/2024 3:16 PM EDT Encounter for long-term (current) use of medications LIPID PANEL WITH REFLEX TO DIRECT LDL Routine 12/20/2024 3:16 PM EDT High cholesterol COLONOSCOPY Routine 11/17/2023 HEPATITIS C SCREENING Routine 04/03/2017 from Last 3 Months or Most Recently Relevant to Health Maintenance Results * (ABNORMAL) Drug abuse screen 8a panel, urine (03/24/2025 9:28 AM EDT) Amphetamine Screen, Ur Negative Negative LAB CHEMISTRY METHOD 10:42 AM EDT [facility] Comment:Certain OTC medicati ons containing ephedrine, phenylephrine, pseudoephedrine and phenylpropanolamine can cause false positive results. Barbiturate Screen, Ur Negative Negative LAB CHEMISTRY METHOD 10:42 AM [facility] Benzodiazepine Screen, Ur Negative Negative LAB CHEMISTRY METHOD 10:42 AM [facility] Cocaine Screen, Ur Negative Negative LAB CHEMISTRY METHOD 10:42 AM [facility] Opiate Screen, Ur Positive(A ) Negative LAB CHEMISTRY METHOD 10:42 AM [facility] Cannabinoid (THC) Screen, Ur Negative Negative LAB CHEMISTRY METHOD 10:42 AM [facility] Comment:Specimens from patie nts taking pantoprazole sodium (Protonix) have been shown to produce false positive results. Oxycodone Screen, Ur Positive(A ) Negative LAB CHEMISTRY METHOD 10:42 AM [facility] Fentanyl, Ur Negative Negative LAB CHEMISTRY METHOD 10:42 AM [facility] Urine Urine specimen obtained by clean catch procedure / Unknown Non-blood Collection / Unknown 03/24/2025 9:28 AM EDT 03/24/2025 9:28 AM EDT Narrative [facility] - 03/24/2025 10:42 AM EDT Assay cutoffs: Amphetamines 1000 ng/mL Barbiturates 200 ng/mL Benzodiazepines 200 ng/mL Cocaine 300 ng/mL Fentanyl 1 ng/mL Opiates 300 ng/mL Oxycodone 100 ng/mL THC 50 ng/mL Semi-quantitative assay for screening purposes only. Unconfirmed screening result should not be used for non-medical purposes. *ALTERNATE METHOD CONFIRMATION DONE UPON REQUEST ONLY* Tenzin MACDONALD LAB URINE ORDERABLES Fi nal Result [facility] [address] [place] [address], [place] [phone] * Hemoglobin A1c (03/21/2025 1:56 PM EDT) Pathologist [facility] Hemoglobin A1C 5.9 <6.5 % LAB CHEMISTRY METHOD 03/21/2025 9:24 PM EDT [facility] Mean Bld Glu Estim. 123 mg/dL LAB CHEMISTRY METHOD 03/21/2025 9:24 PM EDT [facility] Blood Venous blood specimen / Unknown Venipuncture / Unknown 03/21/2025 1:56 PM EDT 03/21/2025 1:57 PM EDT Tenzin MACDONALD LAB BLOOD ORDERABLES Fi nal Result [facility] [address] [place] [address], * XR Knee 3 Views Left (01/23/2025 10:01 AM EDT) Anatomical Region Laterality Modality Lower Extremities, Knee Left Computed Radiography Narrative 01/23/2025 10:08 AM EDT Left knee x-rays January 23, 2025. Bilateral knee PA weightbearing views. Lateral view of the left knee. [place] view of the left knee. No acute osseous abnormalities. Overall good preservation of the articular cartilage of all 3 compartments. us Chlio Mabry MD IMG XR PROCEDURES Final Result * (ABNORMAL) Lipid panel with reflex to direct LDL (12/20/2024 3:16 PM EDT) Pathologist [facility] Cholesterol 199 0 - 200 mg/dL LAB CHEMISTRY METHOD 12/20/2024 7:16 PM EDT [facility] Triglycerides 191(H) 0 - 150 mg/dL LAB CHEMISTRY METHOD 12/20/2024 7:16 PM EDT [facility] HDL 46 >=40 mg/dL LAB CHEMISTRY METHOD 12/20/2024 7:16 PM EDT [facility] LDL Calculated 115(H) 0 - 100 mg/dL LAB CHEMISTRY METHOD 12/20/2024 7:16 PM EDT [facility] VLDL Cholesterol Martin 38.2 mg/dL LAB CHEMISTRY METHOD 12/20/2024 7:16 PM EDT [facility] Non HDL Chol. (LDL+VLDL) 153(H) <145 mg/dL LAB CHEMISTRY METHOD 12/20/2024 7:16 PM EDT [facility] Chol/HDL Ratio 4.3 0.0 - 4.4 LAB CHEMISTRY METHOD 12/20/2024 7:16 PM EDT [facility] Blood Venous blood specimen / Unknown Venipuncture / Unknown 12/20/2024 3:16 PM EDT 12/20/2024 3:16 PM EDT us Hair Mills MD LAB BLOOD ORDERABLES Final Resu lt [facility] [address] [place] [address], [place] [phone] * Comprehensive metabolic panel (12/20/2024 3:16 PM EDT) Sodium 140 133 - 145 mmol/L LAB CHEMISTRY METHOD 12/20/2024 7:15 PM [facility] Potassium 3.9 3.5 - 5.5 mmol/L LAB CHEMISTRY METHOD 12/20/2024 7:15 PM T [facility] Chloride 105 96 - 110 mmol/L LAB CHEMISTRY METHOD 12/20/2024 7:15 PM [facility] CO2 30 21 - 32 mmol/L LAB CHEMISTRY METHOD 12/20/2024 7:15 PM T [facility] Anion Gap 5 3 - 11 LAB CHEMISTRY METHOD 12/20/2024 7:15 PM [facility] Glucose 96 70 - 100 mg/dL LAB CHEMISTRY METHOD 12/20/2024 7:15 PM [facility] BUN 14 5 - 25 mg/dL LAB CHEMISTRY METHOD 12/20/2024 7:15 PM [facility] Creatinine 0.88 0.70 - 1.30 mg/dL LAB CHEMISTRY METHOD 12/20/2024 7:15 PM [facility] eGFR 98 >=60 mL/min/1. 73m2 LAB CHEMISTRY METHOD 12/20/2024 7:15 PM [facility] Comment:Calculation based on the Chronic Kidney Disease Epidemiology Collaboration (CKD-EPI) equation refit without adjustment for race. BUN/Creatinine Ratio 15.9 LAB CHEMISTRY METHOD 12/20/2024 7:15 PM [facility] Calcium 9.4 8.5 - 10.5 mg/dL LAB CHEMISTRY METHOD 12/20/2024 7:15 PM [facility] AST (SGOT) 16 10 - 42 unit/L LAB CHEMISTRY METHOD 12/20/2024 7:15 PM [facility] ALT (SGPT) 29 10 - 60 unit/L LAB CHEMISTRY METHOD 12/20/2024 7:15 PM [facility] Alkaline Phosphatase 80 42 - 121 unit/L LAB CHEMISTRY METHOD 12/20/2024 7:15 PM [facility] Total Protein 7.1 6.0 - 8.0 g/dL LAB CHEMISTRY METHOD 12/20/2024 7:15 PM [facility] Albumin 4.2 3.2 - 5.0 g/dL LAB CHEMISTRY METHOD 12/20/2024 7:15 PM [facility] Total Bilirubin 0.7 0.0 - 1.4 mg/dL LAB CHEMISTRY METHOD 12/20/2024 7:15 PM [facility] Blood Venous blood specimen / Unknown Venipuncture / Unknown 12/20/2024 3:16 PM EDT 12/20/2024 3:16 PM EDT Hair Mills MD LAB BLOOD ORDERABLES Final Resu lt [facility] [address] [place] [address], [place] [phone] * Colonoscopy (11/17/2023) Colonoscopy no interpretation , abstracted Anatomical Region Laterality Modality Other Historical Provider HEALTH MAINTENANCE Final Result * Hepatitis C Screening (04/03/2017) Hepatitis C Screening abstracted Historical Provider HEALTH MAINTENANCE Final Result from Last 3 Months or Most Recently Relevant to Health Maintenance Insurance [facility] Member Subscriber Plan / Payer (Ef fective 2024-Present) Name:NEGRO MONTEZ Relation to Subscriber:Self Name:Negro Montez Payer ID:[id number] Group ID:[id number] Type:Not on file Address: [place] [address] [address] [id number] Care Teams Infrastructure Manager Relationship Specialty Start Date End Date Hair Mills MD [address] [place] [phone] PCP - General Internal Medicine 06/23/24
--- OUTSIDE RECORDS SUMMARY | 2025-04-06 11:28 | XMS_ITS | Clinical Summary ---
Author Organization [facility] Address [address] [place] [address] Care Team Providers Care Laser/Electro Optics Technician Name Role Phone Hair Mills MD Primary Care Provider [phone] Allergies No known active allergies Medications Medication [...] (1 of 2) 2013 Influenza Vaccine (#1) 2025 09/29/2018 DTap / Tdap / Td (2 [...] age to complete this topic Care Teams Laser/Electro Optics Technician Relationship Specialty Start Date End Date Hair Mills MD PCP - General Internal Medicine 07/23/18
--- OUTSIDE RECORDS SUMMARY | 2025-04-06 11:28 | XMS_ITS ---
Author Name [facility] Organization Unknown Care Team Organization Name Specialty Phone Email Start Date End Da te [facility] Judy Cifuentes Primary Care 10/29/2022 04/11/2024 [facility] NITA WATSON Primary Care 07/01/2022
== END 2025-04-06 11:35 | disposition home or self-care (01) ==
LOC: HO.HOS 10:30
PROVIDERS: PCP Internal Medicine; Visit Provider Orthopaedic Surgery
DX: M54.2 Cervicalgia (principal); Z98.890 Other specified postprocedural states; M54.12 Radiculopathy, cervical region
CPT/HCPCS: 99214

== ENCOUNTER → 2025-04-06 10:20 | Outpatient (BNVA) | payer OTHER, SELFPAY | PROVIDERS: PCP Internal Medicine; Visit Provider Orthopaedic Surgery | DX: Z71.2 Person consulting for explanation of examination or test findings (principal); M25.512 Pain in left shoulder; Z98.890 Other specified postprocedural states; M54.12 Radiculopathy, cervical region | CPT/HCPCS: 99212 ==